=== PATIENT | female | born 1980 | race Caucasian/White ===

== ENCOUNTER 2016-07-25 15:14 | Emergency (ER) | payer OTHER ==
[2016-07-25 15:50] LABS: HEMOGLOBIN 14.6 gm/dl (12.3-15.3); RED BLOOD COUNT 4.77 M/UL (4.00-5.10); WHITE BLOOD COUNT 10.3 K/UL (4.5-11.0)
[2016-07-25 16:15] LABS: BUN/CREATININE RATIO 13 (0-10)
== END 2016-07-25 22:17 | disposition home or self-care (01) ==
LOC: ER1 15:14
PROVIDERS: Emergency Medicine
DX: J40 Bronchitis, not specified as acute or chronic (principal); F17.210 Nicotine dependence, cigarettes, uncomplicated; Z88.0 Allergy status to penicillin
CPT/HCPCS: 36415; 71010; 80053; 82550; 82553; 83874; 84484; 84703; 85025; 85379; 93005; 94664; 96360; 99285; J7030; J7050; Q9963

== ENCOUNTER 2021-01-07 13:37 | Emergency (ER) | payer BC ==
[2021-01-07] MEDS ORDERED: NAPROSYN500 MG PO (14:49)
[2021-01-07] MEDS ORDERED: CYCLOBENZAPRINE10 MG PO (14:49)
== END 2021-01-07 15:02 | disposition home or self-care (01) ==
LOC: ER1 13:37
DX: M54.32 Sciatica, left side (principal); M79.605 Pain in left leg; M79.652 Pain in left thigh; F17.210 Nicotine dependence, cigarettes, uncomplicated; Z88.0 Allergy status to penicillin
CPT/HCPCS: 93971; 96372; 99283; J1885